=== PATIENT | female | born 1965 | race Caucasian/White ===

== ENCOUNTER 2016-10-02 17:27 | Emergency (ER) | payer OTHER ==
[2016-10-02] MEDS ORDERED: Pepcid 20 MG VIAL IV ONE (17:55)
[2016-10-02] MEDS ORDERED: MORPHINE SULFATE 4 MG INJ ONE (17:55)
[2016-10-02] MEDS ORDERED: BENADRYL 50 MG/ML ONE (17:55)
[2016-10-02] MEDS ORDERED: Sodium Chloride 0.9% 1000 ML 1,000 ML ONE (17:56)
[2016-10-02] MEDS: Pepcid 20 MG VIAL IV ONE (18:03)
[2016-10-02] MEDS: Sodium Chloride 0.9% 1000 ML 1,000 ML IV SCH (18:03)
[2016-10-02] MEDS: BENADRYL 50 MG/ML IV ONE (18:05)
[2016-10-02 18:07] LABS: BASOPHIL % 0.5 % (0.0-0.4); Eosinophil % 1.7 % (0.00-5.0); Granulocytes % 78.5 % (36.0-66.0); Lymphocytes % 13.5 % (24.0-44.0); Mean Cell Volume 75.7 fl (78-100); Mean Corpuscular Hemoglobin 22.9 pg (26-32); Mean Platelet Volume 11.1 fl (6-9.5); Monocytes % 5.8 % (0.0-12.0); Platelet Count 311 K/mm3 (150-450); Red Blood Count 4.32 M/mm3 (4.1-5.4); Red Cell Distribution Width 15.9 % (11.5-14.0); White Blood Count 13.1 K/mm3 (4.0-10.5)
[2016-10-02] MEDS: MORPHINE SULFATE 4 MG INJ IV ONE (18:08)
[2016-10-02 18:21] LABS: ALBUMIN 3.4 g/dL (3.4-5.0); ALKALINE PHOSPHATASE 84 U/L (46-116); BLOOD UREA NITROGEN 14 mg/dL (9-20); CHLORIDE 103 mEq/L (98-107); Glucose 118 MG/DL (70-110); LIPASE 157 U/L (73-393); SGOT/AST 12 U/L (15-37); SGPT/ALT 17 U/L (12-78); SODIUM 139 mEq/L (136-145); Total Protein 7.4 gm/dL (6.4-8.2)
--- NOTE | 2016-10-02 19:10 | ERPHSYRPT ---
- History of Present Illness Time Seen by Provider: 10/02/16 17:34 Historian: patient Patient Subjective Stated Complaint: abd pain since noon Triage Nursing Assessment: pt states she has had increased pressure and abd pain since noon today. has ostomy and states that her stoma is 'pertruding out a little more than normal' has had this ostomy since december 2015 Physician History: CC: abd pain Hx: 51 y/o patient with hx of ostomy. She has had multiple surgeries in the past. She has had abd pain since Noon today. Pain is diffuse, sharp ,and moderately severe. No fever or chills. No chest pain. She has ostomy output but felt like stoma out a little more than usual. She now sees general surgeon in . Timing/Duration: today Quality: aching Abdominal Pain Onset Location: generalized abdomen Severity of Pain-Max: moderate Severity of Pain-Current: moderate Allergies/Adverse Reactions: latex Allergy (Mild, Verified 10/02/16 17:40) Swelling penicillin G Allergy (Mild, Verified 10/02/16 17:40) Swelling hydromorphone [From Dilaudid] Allergy (Verified 10/02/16 17:40) Home Medications: Aspirin 81 mg PO DAILY 07/08/14 [History] Atorvastatin Calcium [Lipitor] 80 mg PO DAILY 07/08/14 [History] Clopidogrel Bisulfate 75 mg [PLAVIX 75 MG Tablet] 75 mg PO DAILY 07/08/14 [History] Lisinopril 5 mg [Zestril 5 MG] 20 mg PO DAILY 07/08/14 [History] Loratadine 10 mg [Claritin 10 mg] 10 mg PO DAILY 07/08/14 [History] Meclizine HCl 25 mg [Antivert 25 mg] 25 mg PO TID 07/08/14 [History] Metoprolol Tartrate 25 mg [Lopressor 25MG Tab] 50 mg PO BID 07/08/14 [ History] Nitroglycerin 0.4 mg Tablet [Nitrostat 0.4 MG Tablet] 0.4 mg SL UD PRN 12/15 [History] Omeprazole 20 MG [Prilosec 20 mg] 20 mg PO DAILY 07/08/14 [History] Hx Tetanus, Diphtheria Vaccination/Date Given: Yes Hx Influenza Vaccination/Date Given: No Hx Pneumococcal Vaccination/Date Given: No Immunizations Up to Date: Yes - Review of Systems Constitutional: No Fever, No Chills Eyes: No Symptoms Ears, Nose, & Throat: No Symptoms Respiratory: No Cough, No Dyspnea Cardiac: No Chest Pain Abdominal/Gastrointestinal: Abdominal Pain, Nausea, No Vomiting Genitourinary Symptoms: No Dysuria Skin: No Rash Neurological: No Headache All Other Systems: Reviewed and Negative - Past Medical History Pertinent Past Medical History: Yes Neurological History: No Pertinent History ENT History: Other Cardiac History: Coronary Artery Disease, Hypertension, Myocardial Infarction ( [place]) Respiratory History: Sleep Apnea Endocrine Medical History: No Pertinent History Musculoskeletal History: No Pertinent History GI Medical History: Diverticulitis, Diverticulosis History: No Pertinent History Psycho-Social History: No Pertinent History Female Reproductive Disorders: No Pertinent History Other Medical History: 11/15 DIVERTICULITIS W/ BOWEL RUPTURE AND OSTOMY. 12/16 PT. HAD FISTUAL AND ABSCESS AND THEN C-DIFF. INFECTION AFTER OSTOMY REVERSAL ATTEMPT AND THEN HAD TO HAVE OSTOMY REPLACED. [place] 3 YEARS AGO W/ STENT - Past Surgical History Past Surgical History: Yes Cardiac: Cardiac Stent Gastrointestinal: Cholecystectomy Musculoskeletal: Orthopedic Surgery Female Surgical History: Hysterectomy Other Surgical History: OSTY - Social History Smoking Status: Current every day smoker How long have you smoked: YRS Exposure to second hand smoke: Yes Drug Use: none Patient Lives Alone: No - Nursing Vital Signs Nursing Vital Signs: Initial Vital Signs Temperature 98.5 F Temperature Source Oral Pulse Rate 95 Respiratory Rate 20 Blood Pressure [Right Arm] 138/73 Pain Intensity 7 - Physical Exam General Appearance: alert Eye Exam: PERRL/EOMI Ears, Nose, Throat Exam: normal ENT inspection, moist mucous membranes Neck Exam: normal inspection, non-tender, supple Respiratory Exam: normal breath sounds Cardiovascular Exam: regular rate/rhythm Gastrointestinal/Abdomen Exam: soft, tenderness (diffuse ), other (ostomy viable , positive output) Extremity Exam: normal inspection, normal range of motion Neurologic Exam: alert, oriented x 3, cooperative, sensation nml, No motor deficits Skin Exam: warm, dry, No rash SpO2 Interpretation: normal SpO2: 98 Oxygen Delivery: Room Air - Course Nursing assessment & vital signs reviewed: Yes EKG Interpreted by Me: RATE (79), Sinus Rhythm, NORMAL AXIS, 1st degree AV Block , NORMAL QRS, NORMAL ST-T Ordered Tests: Active Orders 24 hr Category Date Time Status Cath for Specimen-Straight STAT Care 10/02/16 17:41 Active EKG-ER Only STAT Care 10/02/16 17:41 Active IV Insertion STAT Care 10/02/16 17:41 Active NPO (ED) STAT Care 10/02/16 17:41 Active ABDOMEN AND PELVIS W CONTRAST [CT] Stat Exams 10/02/16 17:41 Taken CBC W DIFF Stat Lab 10/02/16 17:58 Completed CMP Stat Lab 10/02/16 17:58 Completed LIPASE Stat Lab 10/02/16 17:58 Completed Lactic Acid Stat Lab 10/02/16 17:41 Completed UA W/ MICROSCOPIC Stat Lab 10/02/16 19:21 Completed Medication Summary Generic Name Dose Route Start Last Admin Trade Name Freq PRN Reason Stop Dose Admin Sodium Chloride 1,000 mls @ 100 mls/hr 10/02/16 17:45 10/02/16 18:03 Sodium Chloride 0.9% 1000 Ml IV 11/01/16 17:44 100 mls/hr .Q10H ARELIS Administration Discontinued Medications Generic Name Dose Route Start Last Admin Trade Name Freq PRN Reason Stop Dose Admin Diphenhydramine HCl 25 mg 10/02/16 17:41 10/02/16 18:05 Benadryl 50 Mg/Ml IV 10/02/16 17:42 25 mg STAT ONE Administration Diphenhydramine HCl Confirm 10/02/16 17:55 Benadryl 50 Mg/Ml Administered 10/02/16 17:56 Dose 50 mg .ROUTE .STK-MED ONE Famotidine 20 mg 10/02/16 17:41 10/02/16 18:03 Pepcid 20 Mg Vial IV 10/02/16 17:42 20 mg STAT ONE Administration Famotidine Confirm 10/02/16 17:55 Pepcid 20 Mg Vial Administered 10/02/16 17:56 Dose 20 mg IV .STK-MED ONE Morphine Sulfate 4 mg 10/02/16 17:41 10/02/16 18:08 Morphine Sulfate 4 Mg Inj IV 10/02/16 17:42 4 mg STAT ONE Administration Morphine Sulfate Confirm 10/02/16 17:55 Morphine Sulfate 4 Mg Inj Administered 10/02/16 17:56 Dose 4 mg .ROUTE .STK-MED ONE Morphine Sulfate 2 mg 10/02/16 20:08 10/02/16 20:10 Morphine Sulfate 2 Mg Inj IV 10/02/16 20:09 2 mg STAT ONE Administration Morphine Sulfate Confirm 10/02/16 20:10 Morphine Sulfate 2 Mg Inj Administered 10/02/16 20:11 Dose 2 mg .ROUTE .STK-MED ONE Lab/Rad Data: Laboratory Result Diagrams 10/02/16 17:58 10/02/16 17:58 Laboratory Results 10/02/16 10/02/16 10/02/16 Range/Units 19:21 17:58 17:58 WBC 13.1 H (4.0-10.5) K/mm3 RBC 4.32 (4.1-5.4) M/mm3 Hgb 9.9 L (12.0-16.0) gm/dl Hct 32.7 L (35-47) % MCV 75.7 L (78-100) fl MCH 22.9 L (26-32) pg MCHC 30.3 L (32-36) g/dl RDW 15.9 H (11.5-14.0) % Plt Count 311 (150-450) K/mm3 MPV 11.1 H (6-9.5) fl Gran % 78.5 H (36.0-66.0) % Lymphocytes % 13.5 L (24.0-44.0) % Monocytes % 5.8 (0.0-12.0) % Eosinophils % 1.7 (0.00-5.0) % Basophils % 0.5 (0.0-0.4) % Basophils # 0.07 (0-0.4) Sodium 139 (136-145) mEq/L Potassium 4.0 (3.5-5.1) mEq/L Chloride 103 (98-107) mEq/L Carbon Dioxide 24.0 (21-32) mEq/L Anion Gap 16.0 H (5-15) MEQ/L BUN 14 (9-20) mg/dL Creatinine 0.86 (0.55-1.30) mg/dl Estimated GFR > 60 ML/MIN Glucose 118 H (70-110) MG/DL Lactic Acid (0.4-2.0) Calcium 9.1 (8.5-10.1) mg/dL Total Bilirubin 0.30 (0.2-1.0) mg/dL AST 12 L (15-37) U/L ALT 17 (12-78) U/L Alkaline Phosphatase 84 (46-116) U/L Serum Total Protein 7.4 (6.4-8.2) gm/dL Albumin 3.4 (3.4-5.0) g/dL Lipase 157 (73-393) U/L Ur Collection Type CATH Urine Color YELLOW (YELLOW) Urine Appearance CLEAR (CLEAR) Urine pH 7.0 (5-6) Ur Specific [place] 1.025 (1.005-1.025) Urine Protein NEGATIVE (Negative) Urine Glucose (UA) NEGATIVE (NEGATIVE) mg/dL Urine Ketones NEGATIVE (NEGATIVE) Urine Nitrite NEGATIVE (NEGATIVE) Urine Bilirubin NEGATIVE (NEGATIVE) Urine Urobilinogen 0.2 (0-1) mg/dL Urine WBC (Auto) NEGATIVE (NEGATIVE) Urine RBC (Auto) TRACE-LYSED (0-5) Earle/ul Urine Microscopic RBC 2-5 (0-2) /HPF Urine Microscopic WBC 0-2 (0-5) /HPF Ur Epithelial Cells MODERATE (FEW) /HPF Urine Bacteria RARE (NEGATIVE) /HPF Urine Mucus MODERATE (NEGATIVE) /HPF Specimen Received 10/02/16193910/02/16 Range/Units 17:41 WBC (4.0-10.5) K/mm3 RBC (4.1-5.4) M/mm3 Hgb (12.0-16.0) gm/dl Hct (35-47) % MCV (78-100) fl MCH (26-32) pg MCHC (32-36) g/dl RDW (11.5-14.0) % Plt Count (150-450) K/mm3 MPV (6-9.5) fl Gran % (36.0-66.0) % Lymphocytes % (24.0-44.0) % Monocytes % (0.0-12.0) % Eosinophils % (0.00-5.0) % Basophils % (0.0-0.4) % Basophils # (0-0.4) Sodium (136-145) mEq/L Potassium (3.5-5.1) mEq/L Chloride (98-107) mEq/L Carbon Dioxide (21-32) mEq/L Anion Gap (5-15) MEQ/L BUN (9-20) mg/dL Creatinine (0.55-1.30) mg/dl Estimated GFR ML/MIN Glucose (70-110) MG/DL Lactic Acid 1.4 (0.4-2.0) Calcium (8.5-10.1) mg/dL Total Bilirubin (0.2-1.0) mg/dL AST (15-37) U/L ALT (12-78) U/L Alkaline Phosphatase (46-116) U/L Serum Total Protein (6.4-8.2) gm/dL Albumin (3.4-5.0) g/dL Lipase (73-393) U/L Ur Collection Type Urine Color (YELLOW) Urine Appearance (CLEAR) Urine pH (5-6) Ur Specific [place] (1.005-1.025) Urine Protein (Negative) Urine Glucose (UA) (NEGATIVE) mg/dL Urine Ketones (NEGATIVE) Urine Nitrite (NEGATIVE) Urine Bilirubin (NEGATIVE) Urine Urobilinogen (0-1) mg/dL Urine WBC (Auto) (NEGATIVE) Urine RBC (Auto) (0-5) Earle/ul Urine Microscopic RBC (0-2) /HPF Urine Microscopic WBC (0-5) /HPF Ur Epithelial Cells (FEW) /HPF Urine Bacteria (NEGATIVE) /HPF Urine Mucus (NEGATIVE) /HPF Specimen Received - Progress Progress Note: 10/02/16 19:[address] abd/pelvis. 10/02/16 19:55 CT abd/pelvis: dale 7:25 PM 10/02/2016: No comps. Moderate sized L midabdomen ventral hernia defect w/ small bowel loop herniating. The more proximal small bowel is distended up to 4cm...R/O partial obstruction. R abdomen diverting colostomy intact w/o complications. Remaining abd/pel negative. Pt and family informed of CT results and anemia. Called Dr Hagan for [facility] who advised send patient to where she has seen Dr Lamonte Gutierrez for her ostomy and general surgery issues recently. Called [facility] to arrange transfer. Pt agreeable. 10/02/16 20:[address] Lamonte Dobson at . He accepts transfer to [facility]. Counseled pt/family regarding: lab results, diagnosis, need for follow-up, rad results - Departure Time of Disposition: 20:22 Departure Disposition: Transfer ([facility]) Clinical Impression: Acute abdominal pain, Incarcerated ventral hernia, Partial small bowel obstruction Condition: Fair Critical Care Time: No Referrals: BEBA TAVERA MD [Primary Care Provider] -
[2016-10-02 19:41] LABS: ADD URINE CULTURE? NO (NO); Bacteria RARE /HPF (NEGATIVE); COMPLETE URINE MICROSCOPIC? YES; Collection Type CATH; Epithelial Cells MODERATE /HPF (FEW); Mucus MODERATE /HPF (NEGATIVE); WBC 0-2 /HPF (0-5)
[2016-10-02] MEDS: MORPHINE SULFATE 2 MG INJ IV ONE (20:10)
[2016-10-02] MEDS ORDERED: MORPHINE SULFATE 2 MG INJ ONE (20:10)
[2016-10-02] MEDS ORDERED: Zofran 4 MG/2 ML VIAL ONE (20:33)
[2016-10-02] MEDS: Zofran 4 MG/2 ML VIAL IV ONE (20:34)
[2016-10-02 20:47] VITALS: PULSE 98
--- NOTE | 2016-10-03 08:12 | XRAY ---
Indication: Abdominal pain. Multiple contiguous axial images obtained through the abdomen and pelvis using 80 cc Isovue-370 contrast only. Comparison: None Minimal bibasilar atelectasis/scarring and peripheral right base calcified granuloma. Heart is not enlarged. Stomach is mildly fluid distended. There is a [place] 3.5 cm left mid abdomen ventral hernia defect with loop of small bowel herniating. The more proximal small bowel loop is distended up to 4 cm in diameter concerning for partial obstruction. There has been right mid abdomen diverting colostomy, cholecystectomy, and hysterectomy. Normal appendix. No free fluid/air. Remaining liver, pancreas, spleen, adrenal glands, kidneys, ureters, and bladder appear normal in CT appearance and attenuation. Moderate aortoiliac calcifications. No AAA or pathologic which appear new lymphadenopathy. Osseous structures intact with mild degenerative changes throughout the spine. Impression: 1. Left mid abdomen ventral hernia with herniated bowel loop producing partial obstruction. 2. Right abdomen diverting colostomy without complications. CTDI 23.68
[2016-10-03 13:29] VITALS: BP 192/92; O2SAT 96
== END 2016-10-02 23:08 | disposition short-term general hospital (02) ==
LOC: ED 17:27
DX: R10.9 Unspecified abdominal pain (principal); K43.9 Ventral hernia without obstruction or gangrene; K56.60 Unspecified intestinal obstruction
CPT/HCPCS: 36000; 36415; 74177; 80053; 81000; 83605; 83690; 85025; 93005; 96360; 96361; 96374; 96375; 96376; 99285; J1200; J2270; J2405; P9612

== ENCOUNTER 2016-12-25 23:33 | Observation (INO) | payer OTHER ==
[2016-12-25] MEDS ORDERED: MORPHINE SULFATE 4 MG INJ IV ONE (23:52)
[2016-12-25] MEDS ORDERED: Zofran 4 MG/2 ML VIAL IV ONE (23:52)
[2016-12-25] MEDS ORDERED: Sodium Chloride 0.9% 1000 ML 1,000 ML IV STA (23:52)
[2016-12-25] MEDS ORDERED: PROTONIX 40 MG IV IV ONE (23:52)
[2016-12-26] MEDS ORDERED: PROTONIX 40 MG IV IV ONE (00:02)
[2016-12-26] MEDS ORDERED: Zofran 4 MG/2 ML VIAL ONE (00:02)
[2016-12-26] MEDS ORDERED: Sodium Chloride 0.9% 1000 ML 1,000 ML ONE (00:03)
[2016-12-26] MEDS ORDERED: MORPHINE SULFATE 4 MG INJ ONE (00:03)
[2016-12-26 00:26] LABS: BASOPHIL % 0.3 % (0.0-0.4); Eosinophil % 6.8 % (0.00-5.0); Granulocytes % 72.7 % (36.0-66.0); Lymphocytes % 15.5 % (24.0-44.0); Mean Cell Volume 73.1 fl (78-100); Mean Corpuscular Hemoglobin 21.1 pg (26-32); Mean Platelet Volume 9.9 fl (6-9.5); Monocytes % 4.7 % (0.0-12.0); Platelet Count 525 K/mm3 (150-450); Red Blood Count 4.02 M/mm3 (4.1-5.4); Red Cell Distribution Width 17.5 % (11.5-14.0)
[2016-12-26 00:45] LABS: ALBUMIN 2.8 g/dL (3.4-5.0); ALKALINE PHOSPHATASE 71 U/L (46-116); ANION GAP 12.8 MEQ/L (5-15); BLOOD UREA NITROGEN 13 mg/dL (9-20); CHLORIDE 104 mEq/L (98-107); Carbon Dioxide 25.8 mEq/L (21-32); Glucose 124 MG/DL (70-110); LIPASE 107 U/L (73-393); Potassium 3.7 mEq/L (3.5-5.1); SGOT/AST 17 U/L (15-37); SGPT/ALT 21 U/L (12-78); SODIUM 139 mEq/L (136-145); Total Protein 6.9 gm/dL (6.4-8.2)
[2016-12-26 00:54] LABS: Bacteria MODERATE /HPF (NEGATIVE); Bilirubin NEGATIVE (NEGATIVE); Blood 50 Ery/ul (0-5); COMPLETE URINE MICROSCOPIC? YES; Collection Type CLEAN CATCH; Epithelial Cells MODERATE /HPF (FEW); Glucose NEGATIVE (NEGATIVE); Leukocyte Esterase TRACE (NEGATIVE); WBC 0-2 /HPF (0-5)
[2016-12-26 00:55] LABS: ADD URINE CULTURE? YES (NO)
[2016-12-26] MEDS ORDERED: LEVOFLOXACIN 750MG/150ML D5W 750 MG/150 ML BAG IV STA (01:58)
[2016-12-26] MEDS ORDERED: FLAGYL 500 MG IVPB 500 MG/100 ML BAG IV STA (01:58)
[2016-12-26] MEDS ORDERED: LEVOFLOXACIN 750MG/150ML D5W 750 MG/150 ML BAG IV ONE (02:08)
[2016-12-26] MEDS ORDERED: FLAGYL 500 MG IVPB 500 MG/100 ML BAG IV ONE (02:08)
--- NOTE | 2016-12-26 02:10 | ERPHSYRPT ---
- History of Present Illness Time Seen by Provider: 12/25/16 23:37 Historian: patient, family Exam Limitations: no limitations Patient Subjective Stated Complaint: pt states she has a hernia on her lt abd from previous colostomy site. states she had multiple revisions and had reversal on 12/14/16 at . Triage Nursing Assessment: pt alert and oriented, asnwers questions approp. pt transfer from wheelchair to stretcher with minimal assist. respirations nonlabored with lungs cta. abd soft, tender to touch with large hernia to lt abd , drsg to rt abd pt states from colostomy reversal. bowel sounds present. Timing/Duration: day(s) (3) Activities at Onset: none Quality: sharpness Abdominal Pain Onset Location: LLQ, generalized abdomen Pain Radiation: RUQ Severity of Pain-Max: severe Severity of Pain-Current: severe Modifying Factors: Improves With: vomiting Associated Symptoms: diarrhea, nausea, vomiting Previous symptoms: same symptoms as today, recently seen, recent hospitalization , recently treated Allergies/Adverse Reactions: latex Allergy (Mild, Verified 12/25/16 23:53) Swelling penicillin G Allergy (Mild, Verified 12/25/16 23:53) Swelling hydromorphone [From Dilaudid] Allergy (Verified 12/25/16 23:53) Home Medications: Aspirin 81 mg PO DAILY 07/08/14 [History] Atorvastatin Calcium [Lipitor] 80 mg PO DAILY 07/08/14 [History] Clopidogrel Bisulfate 75 mg [PLAVIX 75 MG Tablet] 75 mg PO DAILY 07/08/14 [History] Lisinopril 5 mg [Zestril 5 MG] 20 mg PO DAILY 07/08/14 [History] Loratadine 10 mg [Claritin 10 mg] 10 mg PO DAILY 07/08/14 [History] Meclizine HCl 25 mg [Antivert 25 mg] 25 mg PO TID 07/08/14 [History] Metoprolol Tartrate 25 mg [Lopressor 25MG Tab] 75 mg PO BID 07/08/14 [ History] Nitroglycerin 0.4 mg Tablet [Nitrostat 0.4 MG Tablet] 0.4 mg SL UD PRN 12/15 [History] Omeprazole 20 MG [Prilosec 20 mg] 40 mg PO DAILY 07/08/14 [History] Amlodipine Besylate 5 mg [Norvasc 5 mg] 5 mg PO DAILY 12/25/16 [History] Hydrocodone Bit/Acetaminophen [[place] 5-325 Tablet] 2 each PO Q4HPRN PRN [History] Magnesium Oxide 400 mg [Mag-Ox 400] 400 mg PO DAILY 12/25/16 [History] Ondansetron HCl [Zofran] 4 mg PO Q4HPRN PRN 12/25/16 [History] Polyethylene Glycol 3350 17 gm [Miralax Powder 17GM PACKET] 17 gm PO DAILY [History] Hx Tetanus, Diphtheria Vaccination/Date Given: Yes Hx Influenza Vaccination/Date Given: No Hx Pneumococcal Vaccination/Date Given: No Immunizations Up to Date: Yes - Review of Systems Constitutional: No Symptoms Eyes: No Symptoms Ears, Nose, & Throat: No Symptoms Respiratory: No Symptoms Cardiac: No Symptoms Abdominal/Gastrointestinal: Abdominal Pain, Nausea, Vomiting, Diarrhea Genitourinary Symptoms: No Symptoms Musculoskeletal: No Symptoms Skin: No Symptoms Neurological: No Symptoms Psychological: No Symptoms Endocrine: No Symptoms Hematologic/Lymphatic: No Symptoms Immunological/Allergic: No Symptoms - Past Medical History Pertinent Past Medical History: Yes Neurological History: No Pertinent History ENT History: Other Cardiac History: Coronary Artery Disease, Hypertension, Myocardial Infarction ( [place]) Respiratory History: Sleep Apnea Endocrine Medical History: No Pertinent History Musculoskeletal History: No Pertinent History GI Medical History: Diverticulitis, Diverticulosis History: No Pertinent History Psycho-Social History: No Pertinent History Female Reproductive Disorders: No Pertinent History Other Medical History: 11/15 DIVERTICULITIS W/ BOWEL RUPTURE AND OSTOMY. 12/16 PT. HAD FISTUAL AND ABSCESS AND THEN C-DIFF. INFECTION AFTER OSTOMY REVERSAL ATTEMPT AND THEN HAD TO HAVE OSTOMY REPLACED. [place] 3 YEARS AGO W/ STENT - Past Surgical History Past Surgical History: Yes Cardiac: Cardiac Stent Gastrointestinal: Cholecystectomy, Colon Resection, Other Musculoskeletal: Orthopedic Surgery Female Surgical History: Hysterectomy Other Surgical History: ostomy with reversal and 2nd ostomy. [facility] at [facility] - Social History Smoking Status: Current every day smoker How long have you smoked: YRS Exposure to second hand smoke: Yes Drug Use: none Patient Lives Alone: No - Female History Hx Last Menstrual Period: post - Nursing Vital Signs Nursing Vital Signs: Initial Vital Signs Temperature 98.8 F 12/25/16 23:37 Pulse Rate 91 H 12/25/16 23:37 Respiratory Rate 20 12/25/16 23:37 Blood Pressure 154/72 12/25/16 23:37 O2 Sat by Pulse Oximetry 97 12/25/16 23:37 Pain Scale Pain Intensity 10 - Physical Exam General Appearance: severe distress Eye Exam: PERRL/EOMI, eyes nml inspection Ears, Nose, Throat Exam: normal ENT inspection, pharynx normal, moist mucous membranes Neck Exam: normal inspection, non-tender, supple, full range of motion Respiratory Exam: normal breath sounds, lungs clear, airway intact Cardiovascular Exam: regular rate/rhythm, normal heart sounds, normal peripheral pulses Gastrointestinal/Abdomen Exam: soft, tenderness (LLQ), distention, guarding, rebound, No normal bowel sounds Extremity Exam: normal inspection, normal range of motion, pelvis stable Neurologic Exam: alert, oriented x 3, cooperative, normal mood/affect Skin Exam: normal color, warm, dry SpO2 Interpretation: normal SpO2: 97 Oxygen Delivery: Room Air - Course Nursing assessment & vital signs reviewed: Yes - CT Exams Abdomen/Pelvis CT Interpretation: Tele-radiologist Report, Other (Hernia sac left abdominal with SBO transition point. Mild fat stranding. Right abdominal anastamosis.) Ordered Tests: Active Orders 24 hr Category Date Time Status Clean Catch Urine Specimen STAT Care 12/25/16 23:52 Active IV Insertion STAT Care 12/25/16 23:52 Active NPO (ED) STAT Care 12/25/16 23:52 Active ABDOMEN AND PELVIS W CONTRAST [CT] Stat Exams 12/25/16 23:53 Taken CHEST 1 VIEW (PORTABLE) Stat Exams 12/25/16 23:53 Taken Medication Summary Generic Name Dose Route Start Last Admin Trade Name Freq PRN Reason Stop Dose Admin Metronidazole 500 mg in 100 mls @ 200 mls/hr 12/26/16 01:58 Flagyl 500 Mg Ivpb IV 12/26/16 02:27 STAT STA Levofloxacin/Dextrose 750 mg in 150 mls @ 100 mls/hr 12/26/16 01:58 Levofloxacin 750mg/150ml D5w IV 12/26/16 03:27 STAT STA Discontinued Medications Generic Name Dose Route Start Last Admin Trade Name Esther PRN Reason Stop Dose Admin Sodium Chloride 1,000 mls @ 999 mls/hr 12/25/16 23:52 12/26/16 00:27 Sodium Chloride 0.9% 1000 Ml IV 12/26/16 00:52 999 mls/hr .Q1H1M STA Administration Sodium Chloride Confirm 12/26/16 00:03 Sodium Chloride 0.9% 1000 Ml Administered 12/26/16 00:04 Dose 1,000 mls @ ud .ROUTE .STK-MED ONE Morphine Sulfate 4 mg 12/25/16 23:52 12/26/16 00:28 Morphine Sulfate 4 Mg Inj IV 12/25/16 23:53 4 mg STAT ONE Administration Morphine Sulfate Confirm 12/26/16 00:03 Morphine Sulfate 4 Mg Inj Administered 12/26/16 00:04 Dose 4 mg .ROUTE .STK-MED ONE Ondansetron HCl 4 mg 12/25/16 23:52 12/26/16 00:28 Zofran 4 Mg/2 Ml Vial IV 12/25/16 23:53 4 mg STAT ONE Administration Ondansetron HCl Confirm 12/26/16 00:02 Zofran 4 Mg/2 Ml Vial Administered 12/26/16 00:03 Dose 4 mg .ROUTE .STK-MED ONE Pantoprazole Sodium 40 mg 12/25/16 23:52 12/26/16 00:27 Protonix 40 Mg Iv IV 12/25/16 23:53 40 mg STAT ONE Administration Pantoprazole Sodium Confirm 12/26/16 00:02 Protonix 40 Mg Iv Administered 12/26/16 00:03 Dose 40 mg IV .STK-MED ONE Lab/Rad Data: Laboratory Result Diagrams 12/25/16 00:01 12/25/16 00:01 Laboratory Results 12/26/16 12/25/16 12/25/16 Range/Units 00:12 00:35 00:01 WBC (4.0-10.5) K/mm3 RBC (4.1-5.4) M/mm3 Hgb (12.0-16.0) gm/dl Hct (35-47) % MCV (78-100) fl MCH (26-32) pg MCHC (32-36) g/dl RDW (11.5-14.0) % Plt Count (150-450) K/mm3 MPV (6-9.5) fl Gran % (36.0-66.0) % Lymphocytes % (24.0-44.0) % Monocytes % (0.0-12.0) % Eosinophils % (0.00-5.0) % Basophils % (0.0-0.4) % Basophils # (0-0.4) Sodium 139 (136-145) mEq/L Potassium 3.7 (3.5-5.1) mEq/L Chloride 104 (98-107) mEq/L Carbon Dioxide 25.8 (21-32) mEq/L Anion Gap 12.8 (5-15) MEQ/L BUN 13 (9-20) mg/dL Creatinine 0.83 (0.55-1.30) mg/dl Estimated GFR > 60 ML/MIN Glucose 124 H (70-110) MG/DL Lactic Acid 1.1 (0.4-2.0) Calcium 8.8 (8.5-10.1) mg/dL Total Bilirubin 0.30 (0.2-1.0) mg/dL AST 17 (15-37) U/L ALT 21 (12-78) U/L Alkaline Phosphatase 71 (46-116) U/L Serum Total Protein 6.9 (6.4-8.2) gm/dL Albumin 2.8 L (3.4-5.0) g/dL Lipase 107 (73-393) U/L Ur Collection Type CLEAN CATCH Urine Color YELLOW (YELLOW) Urine Appearance CLEAR (CLEAR) Urine pH 5.0 (5-6) Ur Specific [place] 1.015 (1.005-1.025) Urine Protein NEGATIVE (Negative) Urine Ketones NEGATIVE (NEGATIVE) Urine Blood 50 (0-5) Earle/ul Urine Nitrite NEGATIVE (NEGATIVE) Urine Bilirubin NEGATIVE (NEGATIVE) Urine Urobilinogen NORMAL (0-1) mg/dL Ur Leukocyte Esterase TRACE (NEGATIVE) Urine Microscopic RBC 2-5 (0-2) /HPF Urine Microscopic WBC 0-2 (0-5) /HPF Ur Epithelial Cells MODERATE (FEW) /HPF Urine Bacteria MODERATE (NEGATIVE) /HPF Urine Glucose NEGATIVE (NEGATIVE) mg/dL Slides for Path Review Specimen Received 12/26/16 0030 12/25/16 Range/Units 00:01 WBC 14.0 H (4.0-10.5) K/mm3 RBC 4.02 L (4.1-5.4) M/mm3 Hgb 8.5 L (12.0-16.0) gm/dl Hct 29.4 L (35-47) % MCV 73.1 L (78-100) fl MCH 21.1 L (26-32) pg MCHC 28.9 L (32-36) g/dl RDW 17.5 H (11.5-14.0) % Plt Count 525 H (150-450) K/mm3 MPV 9.9 H (6-9.5) fl Gran % 72.7 H (36.0-66.0) % Lymphocytes % 15.5 L (24.0-44.0) % Monocytes % 4.7 (0.0-12.0) % Eosinophils % 6.8 H (0.00-5.0) % Basophils % 0.3 (0.0-0.4) % Basophils # 0.04 (0-0.4) Sodium (136-145) mEq/L Potassium (3.5-5.1) mEq/L Chloride (98-107) mEq/L Carbon Dioxide (21-32) mEq/L Anion Gap (5-15) MEQ/L BUN (9-20) mg/dL Creatinine (0.55-1.30) mg/dl Estimated GFR ML/MIN Glucose (70-110) MG/DL Lactic Acid (0.4-2.0) Calcium (8.5-10.1) mg/dL Total Bilirubin (0.2-1.0) mg/dL AST (15-37) U/L ALT (12-78) U/L Alkaline Phosphatase (46-116) U/L Serum Total Protein (6.4-8.2) gm/dL Albumin (3.4-5.0) g/dL Lipase (73-393) U/L Ur Collection Type Urine Color (YELLOW) Urine Appearance (CLEAR) Urine pH (5-6) Ur Specific [place] (1.005-1.025) Urine Protein (Negative) Urine Ketones (NEGATIVE) Urine Blood (0-5) Earle/ul Urine Nitrite (NEGATIVE) Urine Bilirubin (NEGATIVE) Urine Urobilinogen (0-1) mg/dL Ur Leukocyte Esterase (NEGATIVE) Urine Microscopic RBC (0-2) /HPF Urine Microscopic WBC (0-5) /HPF Ur Epithelial Cells (FEW) /HPF Urine Bacteria (NEGATIVE) /HPF Urine Glucose (NEGATIVE) mg/dL Slides for Path Review YES Specimen Received - Progress Progress: unchanged Discussed with Dr.: Other (Dr. Lamonte Dobson's surgery service at .) Counseled pt/family regarding: lab results, diagnosis, need for follow-up, rad results - Departure Time of Disposition: 02:00 Departure Disposition: Transfer Clinical Impression: SBO (small bowel obstruction), Acute abdominal pain UTI (urinary tract infection) Qualifiers: Urinary tract infection type: site unspecified Hematuria presence: with hematuria Qualified Code(s): N39.0 - Urinary tract infection, site not specified ; R31.9 - Hematuria, unspecified Condition: Serious Critical Care Time: No Referrals: BEBA TAVERA MD [Primary Care Provider] -
[2016-12-26] MEDS ORDERED: MORPHINE SULFATE 4 MG INJ IV PRN (02:38)
[2016-12-26] MEDS: Sodium Chloride 0.9% 1000 ML 1,000 ML IV SCH ×2 (03:17→13:45)
--- NOTE | 2016-12-26 09:12 | XRAY ---
Indication: Left lower abdomen pain. Status post colostomy reversal. Multiple contiguous axial images obtained through the abdomen and pelvis using 80 cc Isovue-370 contrast only. Comparison: October 02, 2016. Again minimal bibasilar atelectasis/scarring and peripheral right base calcified granuloma. Heart is not enlarged. Noncontrasted stomach unremarkable. Noncontrasted small bowel loops again fluid distended to the level of the previous left mid abdomen ventral hernia with again herniated small bowel loop and subsequent obstruction. Herniated bowel loops today appear more edematous. The more proximal small bowel loop is distended up to 4.6 cm. New tiny right pelvic free fluid presumed reactive. No walled off fluid collection or free air. There has been colostomy reversal. Again cholecystectomy and hysterectomy. Remaining liver, pancreas, spleen, adrenal glands, kidneys, ureters, and bladder appear normal in CT appearance and attenuation. Moderate aortoiliac calcifications. No AAA or pathologic lymphadenopathy. Osseous structures intact with mild degenerative changes throughout the spine. Impression: Again left mid abdomen ventral hernia with herniated bowel loop and subsequent obstruction. Tiny right pelvic free fluid presumed reactive. Comment: Preliminary interpretation was made by [facility]. No critical discrepancy. CTDI 28.13
--- NOTE | 2016-12-26 09:14 | XRAY ---
Indication: Chest pain. Comparison: None Portable chest clear. Heart is borderline enlarged. Vascularity normal. Bony thorax intact with spinal degenerative changes. Impression: Borderline cardiomegaly. Negative for acute pneumonic process or CHF.
[2016-12-26] MEDS ORDERED: Zofran 4 MG/2 ML VIAL IV PRN (12:17)
[2016-12-26 19:49] VITALS: BP 131/61; PULSE 87; O2SAT 92
--- NOTE | 2016-12-28 10:07 | SSS ---
DISCHARGE DIAGNOSIS: 1. SMALL BOWEL OBSTRUCTION. HISTORY OF PRESENT ILLNESS: The patient is a 51 y/o WF with a long history of bowel problems. She has had multiple bowel surgeries performed. She has a surgeon at [facility]. She presented herself to the Emergency Room with complaints of similar symptoms as previous to her small bowel obstruction. This was confirmed on CT scan that the patient did indeed have a small bowel obstruction. The patient wished to be seen at [facility] by her regular surgeon. However, a bed could not be obtained initially. The patient was in the Emergency Room for approximately 9 hours while they were waiting on a bed. They were told a bed would not be available until later in the day. She was therefore placed in observation in the facility. The patient did receive a bed and was transferred to the [facility] before I had a chance to evaluate her on examination. The patient again with the diagnosis of small bowel obstruction was transferred to [facility] prior to the time that I could see her.
== END 2016-12-26 20:45 ==
LOC: ED 23:33 → MED SURG 12-26 08:50
PROVIDERS: ADMIT Family Medicine; ATTEND Family Medicine
DX: K56.60 Unspecified intestinal obstruction (principal); N39.0 Urinary tract infection, site not specified; I25.10 Atherosclerotic heart disease of native coronary artery without angina pectoris; I10 Essential (primary) hypertension; Z79.899 Other long term (current) drug therapy; I25.2 Old myocardial infarction; G47.30 Sleep apnea, unspecified; Z72.0 Tobacco use
CPT/HCPCS: 36000; 36415; 71010; 74177; 80053; 81000; 83605; 83690; 85025; 87040; 87077; 87086; 87186; 96360; 96361; 96365; 96366; 96374; 96375; 99285; G0378; J1956; J2270; J2405

== ENCOUNTER 2019-07-10 17:26 | Emergency (ER) | payer OTHER ==
[2019-07-10] MEDS ORDERED: BABY ASPIRIN 81 MG CHEW PO ONE (17:42)
[2019-07-10] MEDS ORDERED: Sodium Chloride 0.9% 1000 ML 1,000 ML IV SCH (17:45)
[2019-07-10] MEDS ORDERED: Sodium Chloride 0.9% 1000 ML 1,000 ML ONE (17:50)
[2019-07-10] MEDS ORDERED: BABY ASPIRIN 81 MG CHEW ONE (17:50)
[2019-07-10 17:51] LABS: Absolute Neutrophil Ct (ANC) 5.68 (1.4-6.9); BASOPHIL % 0.8 % (0.0-0.4); Basophil (Absolute #) 0.07 (0-0.4); Eosinophil % 2.5 % (0.00-5.0); Eosinophil (Absolute #) 0.23 (0-0.5); Hematocrit 38.1 % (35-47); Hemoglobin 11.8 gm/dl (12.0-16.0); INR 1.06 (0.8-3.0); Lymphocyte (Absolute #) 2.46 (1.0-4.6); Lymphocytes % 27.2 % (24.0-44.0); Mean Cell Volume 79.2 fl (78-100); Mean Corpuscular Hemoglobin 24.5 pg (26-32); Monocyte (Absolute #) 0.61 (0.0-1.3); Monocytes % 6.7 % (0.0-12.0); Neutrophil % 62.8 % (36.0-66.0); Platelet Count 242 K/mm3 (150-450); Red Blood Count 4.81 M/mm3 (4.1-5.4); White Blood Count 9.1 K/mm3 (4.0-10.5)
[2019-07-10 18:05] LABS: ALBUMIN 4.1 g/dL (3.5-5.0); ALKALINE PHOSPHATASE 70 U/L (38-126); ANION GAP 10.3 MEQ/L (5-15); BLOOD UREA NITROGEN 13 mg/dL (7-17); CHLORIDE 107 mmol/L (98-107); Calcium 9.6 mg/dL (8.4-10.2); Carbon Dioxide 27 mmol/L (22-30); Glucose 104 mg/dL (74-106); NT PRO BNP 339 pg/mL (0-900); Potassium 3.7 mmol/L (3.5-5.1); SGOT/AST 22 U/L (14-36); SGPT/ALT 15 U/L (0-35); SODIUM 140 mmol/L (137-145); Total Protein 7.5 g/dL (6.3-8.2)
--- NOTE | 2019-07-10 19:11 | ERPHSYRPT ---
- History of Present Illness Time Seen by Provider: 07/10/19 17:45 Historian: patient Exam Limitations: no limitations Patient Subjective Stated Complaint: Chest pain Triage Nursing Assessment: Patient ambulated back to ED and transferred self to bed. Patient A+O X 3. Patient's skin pink, warm and dry. Patient complains of chest pain that radiates down to left arm causing a numbness 3/10 that started at 1630. Patient's lungs clear a/p maged. Heart tones audible. Physician History: Is a 54-year-old female who developed chest pain noted increased blood pressure lightheadedness and some nausea but no shortness of breath. She also noted some left arm pain she does have a history of a stent 5 or 6 years ago. Risk factors include family history hypertension and smoking. Timing/Duration: today Activities at Onset: none Quality: pressure Location: substernal Chest Pain Radiation: arm (left) Severity of Pain-Max: moderate Severity of Pain-Current: moderate Modifying Factors: Improves With: nothing Associated Symptoms: nausea Prior Chest Pain/Cardiac Workup: cardiac cath Nitro Today/Relief: no nitro taken today Aspirin Treatment Today: 81 mg x 1 Allergies/Adverse Reactions: hydromorphone [From Dilaudid] Allergy (Severe, Verified 07/10/19 17:27) Rapid Heart Beat "become a mean person" latex Allergy (Mild, Verified 07/10/19 17:27) Swelling penicillin G Allergy (Mild, Verified 07/10/19 17:27) Swelling acetaminophen [From Percocet] Adverse Reaction (Severe, Verified 07/10/19 17:27) Difficulty Breathing "bad bad trips" oxycodone [From Percocet] Adverse Reaction (Severe, Verified 07/10/19 17:27) Difficulty Breathing "bad bad trips" Home Medications: Aspirin 81 mg PO HS 07/08/14 [History] Clopidogrel Bisulfate 75 mg [PLAVIX 75 MG Tablet] 75 mg PO QAM 07/08/14 [ History] Lisinopril 5 mg [Zestril 5 MG] 20 mg PO HS 07/08/14 [History] Loratadine 10 mg [Claritin 10 mg] 10 mg PO DAILY PRN PRN 07/08/14 [History ] Meclizine HCl 25 mg [Antivert 25 mg] 25 mg PO TID 07/08/14 [History] Metoprolol Tartrate 25 mg [Lopressor 25MG Tab] 25 mg PO BID 07/08/14 [ History] Nitroglycerin 0.4 mg Tablet [Nitrostat 0.4 MG Tablet] 0.4 mg SL Q5MIN PRN MR X 3 PRN 07/08/14 [History] Magnesium Oxide 400 mg [Mag-Ox 400] 400 mg PO DAILY 12/25/16 [History] Atorvastatin Calcium 80 mg PO DAILY 06/07/19 [History] Gabapentin 300 mg PO BID 06/07/19 [History] PANTOPRAZOLE 40 mg Tablet [Protonix 40MG Tablet] 40 mg PO QAM 06/07/19 [ History] Solifenacin Succinate [Vesicare] 5 mg PO HS 06/07/19 [History] Hx Tetanus, Diphtheria Vaccination/Date Given: Yes Hx Influenza Vaccination/Date Given: No Hx Pneumococcal Vaccination/Date Given: No Immunizations Up to Date: Yes - Review of Systems Constitutional: No Fever, No Chills Eyes: No Symptoms Ears, Nose, & Throat: No Symptoms Respiratory: No Cough, No Dyspnea Cardiac: Chest Pain, No Edema, No Syncope Abdominal/Gastrointestinal: No Abdominal Pain, No Nausea, No Vomiting, No Diarrhea Genitourinary Symptoms: No Dysuria Musculoskeletal: No Back Pain, No Neck Pain Skin: No Rash Neurological: No Dizziness, No Focal Weakness, No Sensory Changes Psychological: No Symptoms Endocrine: No Symptoms All Other Systems: Reviewed and Negative - Past Medical History Pertinent Past Medical History: Yes Neurological History: Peripheral Neuropathy ENT History: No Pertinent History Cardiac History: Myocardial Infarction ([place]) Respiratory History: Sleep Apnea Endocrine Medical History: No Pertinent History Musculoskeletal History: No Pertinent History GI Medical History: Diverticulitis, Diverticulosis History: No Pertinent History Psycho-Social History: No Pertinent History Female Reproductive Disorders: No Pertinent History Other Medical History: Pt reports that she has tingling in her entire R side following PR in 2016. Pt notes that tingling begins in her toes and goes all the way up through her R arm. - Past Surgical History Past Surgical History: Yes Neuro Surgical History: No Pertinent History Cardiac: Cardiac Stent Respiratory: No Pertinent History Gastrointestinal: Cholecystectomy, Colon Resection, Other Genitourinary: No Pertinent History Musculoskeletal: Orthopedic Surgery Female Surgical History: Hysterectomy Other Surgical History: ostomy with reversal and 2nd ostomy. [facility] back surgery- discectomy, mesh - Social History Smoking Status: Current every day smoker How long have you smoked: years Exposure to second hand smoke: Yes Drug Use: none Patient Lives Alone: Yes - Female History Hx Last Menstrual Period: hysterectomy - Nursing Vital Signs Nursing Vital Signs: Initial Vital Signs Temperature 97.8 F 07/10/19 17:27 Pulse Rate 72 07/10/19 17:27 Respiratory Rate 18 07/10/19 17:27 Blood Pressure 137/55 07/10/19 17:27 O2 Sat by Pulse Oximetry 99 07/10/19 17:27 Pain Scale Pain Intensity 3 - Physical Exam General Appearance: mild distress, alert Eye Exam: PERRL/EOMI, eyes nml inspection Ears, Nose, Throat Exam: normal ENT inspection, moist mucous membranes Neck Exam: normal inspection, non-tender, supple, full range of motion Respiratory Exam: normal breath sounds, lungs clear, No respiratory distress Cardiovascular Exam: regular rate/rhythm, normal heart sounds Gastrointestinal/Abdomen Exam: soft, No tenderness, No mass Back Exam: normal inspection, No CVA tenderness, No vertebral tenderness Extremity Exam: normal inspection, normal range of motion Neurologic Exam: alert, oriented x 3, cooperative, normal mood/affect, sensation nml, No motor deficits Skin Exam: normal color, warm, dry SpO2: 98 - Course Nursing assessment & vital signs reviewed: Yes EKG Interpreted by Me: RATE (72), Sinus Rhythm, NORMAL AXIS, NORMAL INTERVALS ( [place] interval was prolonged), Non-specific ST Changes, Other (Or R wave progression) - Radiology Exams Chest X-ray Interpretation: Interpreted by me (Film was rotated but there appears to be a questionable infiltrate in the right middle lobe area) Ordered Tests: Active Orders 24 hr Category Date Time Status EKG-ER Only STAT Care 07/10/19 17:42 Active CHEST 1 VIEW (PORTABLE) Stat Exams 07/10/19 17:42 Taken CBC W DIFF Stat Lab 07/10/19 17:37 Completed CMP Stat Lab 07/10/19 17:37 Completed D-DIMER QUANTITATIVE Stat Lab 07/10/19 17:37 Completed NT PRO BNP Stat Lab 07/10/19 17:37 Completed PROTIME WITH INR Stat Lab 07/10/19 17:37 Completed TROPONIN Q3H Lab 07/10/19 17:37 Completed TROPONIN Q3H Lab 07/10/19 20:45 Ordered TROPONIN Q3H Lab 07/10/19 23:45 Ordered TROPONIN Q3H Lab 07/11/19 02:45 Ordered TROPONIN Q3H Lab 07/11/19 05:45 Ordered Medication Summary Generic Name Dose Route Start Last Admin Trade Name Freq PRN Reason Stop Dose Admin Sodium Chloride 1,000 mls @ 50 mls/hr 07/10/19 17:45 07/10/19 17:53 Sodium Chloride 0.9% 1000 Ml IV 08/09/19 17:44 50 mls/hr .Q20H ARELIS Administration Discontinued Medications Generic Name Dose Route Start Last Admin Trade Name Freq PRN Reason Stop Dose Admin Aspirin 324 mg 07/10/19 17:42 07/10/19 17:52 Baby Aspirin 81 Mg Chew PO 07/10/19 17:43 324 mg STAT ONE Administration Aspirin Confirm 07/10/19 17:50 Baby Aspirin 81 Mg Chew Administered 07/10/19 17:51 Dose 324 mg .ROUTE .STK-MED ONE Lab/Rad Data: Laboratory Result Diagrams 07/10/19 17:37 07/10/19 17:37 Laboratory Results 07/10/19 07/10/19 07/10/19 Range/Units 17:37 17:37 17:37 WBC (4.0-10.5) K/mm3 RBC (4.1-5.4) M/mm3 Hgb (12.0-16.0) gm/dl Hct (35-47) % MCV (78-100) fl MCH (26-32) pg MCHC (32-36) g/dl Plt Count (150-450) K/mm3 Gran % (36.0-66.0) % Eos # (Auto) (0-0.5) Absolute Lymphs (auto) (1.0-4.6) Absolute Monos (auto) (0.0-1.3) Lymphocytes % (24.0-44.0) % Monocytes % (0.0-12.0) % Eosinophils % (0.00-5.0) % Basophils % (0.0-0.4) % Absolute Granulocytes (1.4-6.9) Basophils # (0-0.4) PT 12.0 (9.95-12.35) SECONDS INR 1.06 (0.8-3.0) D-Dimer 386 (215-500) ng/mL Sodium 140 (137-145) mmol/L Potassium 3.7 (3.5-5.1) mmol/L Chloride 107 (98-107) mmol/L Carbon Dioxide 27 (22-30) mmol/L Anion Gap 10.3 (5-15) MEQ/L BUN 13 (7-17) mg/dL Creatinine 0.70 (0.52-1.04) mg/dL Estimated GFR > 60.0 ML/MIN Glucose 104 (74-106) mg/dL Calcium 9.6 (8.4-10.2) mg/dL Total Bilirubin 0.40 (0.2-1.3) mg/dL AST 22 (14-36) U/L ALT 15 (0-35) U/L Alkaline Phosphatase 70 (38-126) U/L Troponin I < 0.012 (0.000-0.034) ng/mL NT-Pro-B Natriuret Pep 339 (0-900) pg/mL Serum Total Protein 7.5 (6.3-8.2) g/dL Albumin 4.1 (3.5-5.0) g/dL 07/10/19 Range/Units 17:37 WBC 9.1 (4.0-10.5) K/mm3 RBC 4.81 (4.1-5.4) M/mm3 Hgb 11.8 L (12.0-16.0) gm/dl Hct 38.1 (35-47) % MCV 79.2 (78-100) fl MCH 24.5 L (26-32) pg MCHC 31.0 L (32-36) g/dl Plt Count 242 (150-450) K/mm3 Gran % 62.8 (36.0-66.0) % Eos # (Auto) 0.23 (0-0.5) Absolute Lymphs (auto) 2.46 (1.0-4.6) Absolute Monos (auto) 0.61 (0.0-1.3) Lymphocytes % 27.2 (24.0-44.0) % Monocytes % 6.7 (0.0-12.0) % Eosinophils % 2.5 (0.00-5.0) % Basophils % 0.8 (0.0-0.4) % Absolute Granulocytes 5.68 (1.4-6.9) Basophils # 0.07 (0-0.4) PT (9.95-12.35) SECONDS INR (0.8-3.0) D-Dimer (215-500) ng/mL Sodium (137-145) mmol/L Potassium (3.5-5.1) mmol/L Chloride (98-107) mmol/L Carbon Dioxide (22-30) mmol/L Anion Gap (5-15) MEQ/L BUN (7-17) mg/dL Creatinine (0.52-1.04) mg/dL Estimated GFR ML/MIN Glucose (74-106) mg/dL Calcium (8.4-10.2) mg/dL Total Bilirubin (0.2-1.3) mg/dL AST (14-36) U/L ALT (0-35) U/L Alkaline Phosphatase (38-126) U/L Troponin I (0.000-0.034) ng/mL NT-Pro-B Natriuret Pep (0-900) pg/mL Serum Total Protein (6.3-8.2) g/dL Albumin (3.5-5.0) g/dL - Progress Progress: improved Air Movement: good Blood Culture(s) Obtained: No Antibiotics given: Yes - Departure Departure Disposition: Home Clinical Impression: Right middle lobe pulmonary infiltrate Condition: Stable Critical Care Time: No Referrals: BEBA TAVERA MD [Primary Care Provider] - Instructions: Chest Pain (DC) Prescriptions: Cephalexin Mh 500 mg [Keflex 500 mg] 500 mg PO TID #21 capsule
[2019-07-10 19:54] VITALS: BP 147/75; PULSE 74; O2SAT 97
[2019-07-10 23:39] LABS: Slide Review 1 YES
--- NOTE | 2019-07-11 08:59 | XRAY ---
Indication: Chest pain, lightheaded, and hypertension. Comparison: December 26, 2016. Portable chest remains clear. Heart is not enlarged for AP portable technique. Bony thorax intact again with mild degenerative changes. Impression: Nonacute chest.
== END 2019-07-10 19:55 | disposition home or self-care (01) ==
LOC: ED 17:26
DX: R91.8 Other nonspecific abnormal finding of lung field (principal)
CPT/HCPCS: 36415; 71045; 80053; 83880; 84484; 85025; 85379; 85610; 93005; 99284; A9270-GY

== ENCOUNTER 2023-06-25 09:02 | Emergency (ER) | payer MEDICARE ==
[2023-06-25 09:18] VITALS: TEMP 97.2
--- NOTE | 2023-06-25 10:33 | ERPHSYRPT ---
- History of Present Illness Time Seen by Provider: 06/25/23 10:14 Source: patient Exam Limitations: no limitations Patient Subjective Stated Complaint: pt here for swelling and pain to right side of jaw just below the right ear today after eating hale, shes states it aslo happened before. she states that side of face is numb but has history of numbness to right side of body, she was seen at [facility], yesterday, denies fever, Triage Nursing Assessment: pt alert, walked in, resp easy, has swelling and tenderness to right jaw area under right ear, moves all ext well, Physician History: Pt states yesterday she had a near syncopal episode with a headache which lasted for 15 minutes, went to [facility] ER and was released. Today at 6:30 AM pt ate hale and started with swelling of the right jaw and right side of the neck below the right ear with numbness of the face and hands. Pt denies chest pain, shortness of air, fever, abdominal pain, nausea, vomiting, weakness. Allergies/Adverse Reactions: hydromorphone [From Dilaudid] Allergy (Severe, Verified 06/25/23 09:39) Rapid Heart Beat "become a mean person" latex Allergy (Mild, Verified 06/25/23 09:39) Swelling penicillin G Allergy (Mild, Verified 06/25/23 09:39) Swelling acetaminophen [From Percocet] Adverse Reaction (Severe, Verified 06/25/23 09:39) Difficulty Breathing "bad bad trips" oxycodone [From Percocet] Adverse Reaction (Severe, Verified 06/25/23 09:39) Difficulty Breathing "bad bad trips" Home Medications: Aspirin 81 mg PO HS 07/08/14 [History] Clopidogrel Bisulfate [PLAVIX 75 MG Tablet] 75 mg PO QAM 07/08/14 [History] Lisinopril 5 mg [Zestril 5 MG] 20 mg PO HS 07/08/14 [History] Loratadine 10 mg [Claritin 10 mg] 10 mg PO DAILY PRN PRN 07/08/14 [History] Meclizine HCl 25 mg [Antivert 25 mg] 25 mg PO TID 07/08/14 [History] Metoprolol Tartrate 25 mg [Lopressor 25MG Tab] 25 mg PO BID 07/08/14 [History] Nitroglycerin 0.4 mg Tablet [Nitrostat 0.4 MG Tablet] 0.4 mg SL Q5MIN PRN MR X 3 PRN 07/08/14 [History] Magnesium Oxide 400 mg [Mag-Ox 400] 400 mg PO DAILY 12/25/16 [History] Atorvastatin Calcium 80 mg PO DAILY 06/07/19 [History] Gabapentin 300 mg PO BID 06/07/19 [History] PANTOPRAZOLE 40 mg Tablet [Protonix 40MG Tablet] 40 mg PO QAM 06/07/19 [History] Solifenacin Succinate [Vesicare] 5 mg PO HS 06/07/19 [History] Hx Tetanus, Diphtheria Vaccination/Date Given: Yes Hx Influenza Vaccination/Date Given: No Hx Pneumococcal Vaccination/Date Given: No Immunizations Up to Date: Yes Travel Risk - International Travel Have you traveled outside of the country in past 3 weeks: No - Coronavirus Screening Are you exhibiting any of the following symptoms?: No Close contact with a COVID-19 positive Pt in past 14-21 Days: No - Vaccine Status Have you recieved a Covid-19 vaccination: Yes 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: [employer] - Vaccination Dates Date of 2cond Vaccination (if applicable): 2020 - Review of Systems Constitutional: No Fever Respiratory: No Dyspnea Cardiac: No Chest Pain Abdominal/Gastrointestinal: No Abdominal Pain, No Nausea, No Vomiting, No Diarrhea Skin: No Rash Neurological: Headache, Sensory Changes (facial and bilateral hand numbness) - Past Medical History Pertinent Past Medical History: Yes Neurological History: Peripheral Neuropathy ENT History: No Pertinent History Cardiac History: Myocardial Infarction ([place]) Respiratory History: Sleep Apnea Endocrine Medical History: No Pertinent History Musculoskeletal History: No Pertinent History GI Medical History: Diverticulitis, Diverticulosis History: No Pertinent History Psycho-Social History: No Pertinent History Female Reproductive Disorders: No Pertinent History Other Medical History: Pt reports that she has tingling in her entire R side following [place] in 2016. Pt notes that tingling begins in her toes and goes all the way up through her R arm. - Past Surgical History Past Surgical History: Yes Neuro Surgical History: Other Cardiac: Cardiac Stent Respiratory: No Pertinent History Gastrointestinal: Cholecystectomy, Colon Resection, Other Genitourinary: No Pertinent History Musculoskeletal: Orthopedic Surgery Female Surgical History: Hysterectomy Other Surgical History: ostomy with reversal and 2nd ostomy. [facility] 12[facility] back surgery- discectomy, mesh - Social History Smoking Status: Current every day smoker How long have you smoked: years Exposure to second hand smoke: Yes Drug Use: none Patient Lives Alone: Yes - Nursing Vital Signs Nursing Vital Signs: Initial Vital Signs Temperature 97.2 F 06/25/23 09:17 Pulse Rate 72 06/25/23 09:17 Respiratory Rate 14 06/25/23 09:17 Blood Pressure 150/67 06/25/23 09:17 O2 Sat by Pulse Oximetry 100 06/25/23 09:17 Pain Scale Pain Intensity 0 - Dionisio Coma Scale Best Eye Response ([place]): (4) open spontaneously Best Verbal Response ([place]): (5) oriented Best Motor Response ([place]): (6) obeys commands [place] Total: 15 - Physical Exam General Appearance: alert Eye Exam: right eye: other (ptosis(ongoing)), bilateral eye: PERRL, EOMI Ears, Nose, Throat Exam: TMs normal, pharynx normal Neck Exam: other (mild tenderness on right side of neck below right ear) Respiratory: normal breath sounds Cardiovascular: normal heart sounds Gastrointestinal: soft, normal bowel sounds Back Exam: normal inspection Extremity Exam: No pedal edema 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 Straightening of spine noted likely due to muscular spasms. See rest of report.) Head CT Interpretation: Tele-radiologist Report (Extra axial CSF spaces are prominent in the bilateral frontoparietal lobe with normal vessels inside causing compression over the lobes with subdural hygroma being a possible differential and requires clinical correlation.) Ordered Tests: Active Orders 24 hr Category Date Time Status EKG-ER Only STAT Care 06/25/23 10:36 Active IV Insertion STAT Care 06/25/23 10:36 Active CHEST 2 VIEWS (PA AND LAT) Stat Exams 06/25/23 10:37 Completed HEAD WITHOUT CONTRAST [CT] Stat Exams 06/25/23 10:36 Completed NECK WO CONTRAST [CT] Stat Exams 06/25/23 10:36 Completed CBC W DIFF Stat Lab 06/25/23 10:05 Completed CMP Stat Lab 06/25/23 10:36 Completed CULTURE,URINE Stat Lab 06/25/23 10:39 Received MAGNESIUM Stat Lab 06/25/23 10:36 Completed TROPONIN Q4H Lab 06/25/23 10:45 Completed TROPONIN Q4H Lab 06/25/23 14:30 Completed TROPONIN Q4H Lab 06/25/23 18:45 Ordered UA W/RFX UR CULTURE Stat Lab 06/25/23 10:39 Completed Urine Triage Profile Stat Lab 06/25/23 10:39 Ordered Medication Summary Generic Name Dose Route Start Last Admin Trade Name Freq PRN Reason Stop Dose Admin Sodium Chloride 1,000 mls @ 100 mls/hr 06/25/23 10:45 06/25/23 10:44 Sodium Chloride 0.9% 1000 Ml IV 07/25/23 10:44 100 mls/hr .Q10H ARELIS Administration Lab/Rad Data: Laboratory Result Diagrams 06/25/23 10:05 06/25/23 10:36 Laboratory Results 06/25/23 06/25/23 06/25/23 Range/Units 14:30 10:45 10:39 WBC (4.0-10.5) x10^3/uL RBC (4.1-5.4) x10^6/uL Hgb (12.0-16.0) g/dL Hct (35-47) % MCV (78-100) fL MCH (26-32) pg MCHC (32-36) g/dL RDW (11.5-14.0) % Plt Count (150-450) x10^3/uL MPV (7.5-11.0) fL Gran % (36.0-66.0) % Immature Gran % (Auto) (0.00-0.4) % Nucleat RBC Rel Count (0.00-0.1) % Eos # (Auto) (0-0.5) x10^3/uL Immature Gran # (Auto) (0.00-0.03) x10^3u/L Absolute Lymphs (auto) (1.0-4.6) x10^3/uL Absolute Monos (auto) (0.0-1.3) x10^3/uL Absolute Nucleated RBC (0.00-0.01) x10^3u/L Lymphocytes % (24.0-44.0) % Monocytes % (0.0-12.0) % Eosinophils % (0.00-5.0) % Basophils % (0.0-0.4) % Absolute Granulocytes (1.4-6.9) x10^3/uL Basophils # (0-0.4) x10^3/uL Sodium (137-145) mmol/L Potassium (3.5-5.1) mmol/L Chloride (98-107) mmol/L Carbon Dioxide (22-30) mmol/L Anion Gap (5-15) MEQ/L BUN (7-17) mg/dL Creatinine (0.52-1.04) mg/dL Estimated GFR ML/MIN Glucose (74-106) mg/dL Calcium (8.4-10.2) mg/dL Magnesium (1.6-2.3) mg/dL Total Bilirubin (0.2-1.3) mg/dL AST (14-36) U/L ALT (0-35) U/L Alkaline Phosphatase (38-126) U/L Troponin I < 0.012 < 0.012 (0.000-0.034) ng/mL Serum Total Protein (6.3-8.2) g/dL Albumin (3.5-5.0) g/dL Urine Color Yellow (Yellow) Urine Appearance Clear (Clear) Urine pH 6.5 (4.6-8.0) Ur Specific [place] <=1.005 (1.005-1.030) Urine Protein 100 A (Negative) Urine Glucose (UA) Negative (Negative) mg/dL Urine Ketones Negative (Negative) Urine Blood Trace (Negative) Urine Nitrite Negative (Negative) Urine Bilirubin Negative (Negative) Urine Urobilinogen 0.2 (0.2) mg/dL Ur Leukocyte Esterase Small A (Negative) U Hyaline Cast (Auto) NONE SEEN (0-2) /LPF Urine Microscopic RBC 0-2 (0-5) /HPF Urine Microscopic WBC 11-20 A (0-5) /HPF Ur Epithelial Cells None Seen (None Seen) /HPF Urine Bacteria None Seen (None Seen) /HPF Urine Culture Reflexed YES (NO) 06/25/23 06/25/23 Range/Units 10:36 10:05 WBC 11.0 H (4.0-10.5) x10^3/uL RBC 4.95 (4.1-5.4) x10^6/uL Hgb 15.3 (12.0-16.0) g/dL Hct 46.9 (35-47) % MCV 94.7 (78-100) fL MCH 30.9 (26-32) pg MCHC 32.6 (32-36) g/dL RDW 12.8 (11.5-14.0) % Plt Count 262 (150-450) x10^3/uL MPV 11.9 H (7.5-11.0) fL Gran % 69.2 H (36.0-66.0) % Immature Gran % (Auto) 0.4 (0.00-0.4) % Nucleat RBC Rel Count 0.0 (0.00-0.1) % Eos # (Auto) 0.31 (0-0.5) x10^3/uL Immature Gran # (Auto) 0.04 H (0.00-0.03) x10^3u/L Absolute Lymphs (auto) 2.40 (1.0-4.6) x10^3/uL Absolute Monos (auto) 0.52 (0.0-1.3) x10^3/uL Absolute Nucleated RBC 0.00 (0.00-0.01) x10^3u/L Lymphocytes % 21.8 L (24.0-44.0) % Monocytes % 4.7 (0.0-12.0) % Eosinophils % 2.8 (0.00-5.0) % Basophils % 1.1 (0.0-0.4) % Absolute Granulocytes 7.60 H (1.4-6.9) x10^3/uL Basophils # 0.12 (0-0.4) x10^3/uL Sodium 140 (137-145) mmol/L Potassium 3.8 (3.5-5.1) mmol/L Chloride 106 (98-107) mmol/L Carbon Dioxide 25 (22-30) mmol/L Anion Gap 11.9 (5-15) MEQ/L BUN 15 (7-17) mg/dL Creatinine 0.84 (0.52-1.04) mg/dL Estimated GFR 80.0 ML/MIN Glucose 105 (74-106) mg/dL Calcium 9.6 (8.4-10.2) mg/dL Magnesium 2.1 (1.6-2.3) mg/dL Total Bilirubin 0.50 (0.2-1.3) mg/dL AST 25 (14-36) U/L ALT 16 (0-35) U/L Alkaline Phosphatase 80 (38-126) U/L Troponin I (0.000-0.034) ng/mL Serum Total Protein 7.3 (6.3-8.2) g/dL Albumin 4.5 (3.5-5.0) g/dL Urine Color (Yellow) Urine Appearance (Clear) Urine pH (4.6-8.0) Ur Specific [place] (1.005-1.030) Urine Protein (Negative) Urine Glucose (UA) (Negative) mg/dL Urine Ketones (Negative) Urine Blood (Negative) Urine Nitrite (Negative) Urine Bilirubin (Negative) Urine Urobilinogen (0.2) mg/dL Ur Leukocyte Esterase (Negative) U Hyaline Cast (Auto) (0-2) /LPF Urine Microscopic RBC (0-5) /HPF Urine Microscopic WBC (0-5) /HPF Ur Epithelial Cells (None Seen) /HPF Urine Bacteria (None Seen) /HPF Urine Culture Reflexed (NO) - Progress Progress: unchanged Discussed with : Other (Spoke with & discussed case with Dr. Herrera(Neurosurgeon)([id number]) who accepted pt for transfer to [facility] ER.) Counseled pt/family regarding: lab results, diagnosis, rad results Medical Desision Making - Diagnostic Testing Diagnostic test were ordered, analyzed, and reviewed by me: Yes Radiological Interpretation: Teleradiologist Report - Departure Departure Disposition: Transfer ([facility] ER) Clinical Impression: Thyroid gland nodules, Subdural hygroma, Numbness, Neck pain, Near syncopal episode Condition: Stable Critical Care Time: Yes Critical Care Time(excluding separately billable procedures): Critical 30-74 mins Referrals: BEBA TAVERA MD [Primary Care Provider] - Follow up/PCP as directed
[2023-06-25] MEDS ORDERED: Sodium Chloride 0.9% 1000 ML 1,000 ML ONE (10:41)
[2023-06-25] MEDS: Sodium Chloride 0.9% 1000 ML 1,000 ML IV SCH (10:44)
[2023-06-25 10:47] LABS: BASOPHIL % 1.1 % (0.0-0.4); Basophil (Absolute #) 0.12 x10^3/uL (0-0.4); Eosinophil % 2.8 % (0.00-5.0); Eosinophil (Absolute #) 0.31 x10^3/uL (0-0.5); Hematocrit 46.9 % (35-47); Hemoglobin 15.3 g/dL (12.0-16.0); IMMATURE GRAN # 0.04 x10^3u/L (0.00-0.03); IMMATURE GRAN % 0.4 % (0.00-0.4); Lymphocytes % 21.8 % (24.0-44.0); Mean Cell Volume 94.7 fL (78-100); Mean Corpuscular Hemoglobin 30.9 pg (26-32); Mean Corpuscular Hgb Concent. 32.6 g/dL (32-36); Mean Platelet Volume 11.9 fL (7.5-11.0); Monocyte (Absolute #) 0.52 x10^3/uL (0.0-1.3); Monocytes % 4.7 % (0.0-12.0); Neutrophil % 69.2 % (36.0-66.0); Platelet Count 262 x10^3/uL (150-450); Red Blood Count 4.95 x10^6/uL (4.1-5.4); Red Cell Distribution Width 12.8 % (11.5-14.0)
[2023-06-25 10:56] LABS: ALBUMIN 4.5 g/dL (3.5-5.0); ANION GAP 11.9 MEQ/L (5-15); BILIRUBIN,TOTAL 0.5 mg/dL (0.2-1.3); Calcium 9.6 mg/dL (8.4-10.2); Creatinine 1 0.84 mg/dL (0.52-1.04); MAGNESIUM 2.1 mg/dL (1.6-2.3); Potassium 3.8 mmol/L (3.5-5.1); Total Protein 7.3 g/dL (6.3-8.2)
--- NOTE | 2023-06-25 11:24 | XRAY ---
CLINICAL HISTORY: near syncope TECHNIQUE: X-ray chest frontal and lateral views. COMPARISON: None. FINDINGS: Mild prominence of broncho vascular markings seen bilaterally. No consolidation seen in both lung deal. Normal sydnee and mediastinum. Normal appearing cardiac silhouette. Both costophrenic angles are clear. Unfolding of aorta seen. Visualized bones show mild degenerative changes. The partially reduced height of a mid-thoracic vertebra seen would recommend dedicated views if clinically indicated. Evidence of cervical fusion seen. IMPRESSION: No active pulmonary pathology seen. Electronically Signed by: Vy Huitron MD. (06/25/2023 11:19:47 EST)
--- NOTE | 2023-06-25 11:54 | XRAY ---
CLINICAL HISTORY: numbness TECHNIQUE: An axial CT scan of the neck was performed without the administration of intravenous contrast. Sagittal and coronal reconstructions were obtained. COMPARISON: None. FINDINGS: No sizable cervical lymph nodes at any of the noted lymph node stations. Normal CT appearance of the supra-and infra-hyoid deep neck spaces. Normal CT appearance of the larynx, namely the supraglottic, glottic, and infra, glottic spaces. Unremarkable. Nasal and Tr pharyngeal mucosal spaces. Normal CT appearance of the sublingual, submandibular, and parotid salivary glands. The base of the tongue, the uvula, the epiglottis, the vocal cords, the upper trachea, and the upper esophagus are unremarkable. The thyroid gland shows a few well-defined hypodense nodules measuring 1.8x2.0cm in the left lobe,1.4x1.2cm in the right lobe, and 1.2x1.4cm in the isthmus and needs proper assessment with TIRADS classification. The visualized structures of the posterior fossa show no definite abnormality. Straightening of spine noted likely due to muscular spasms with anterior plate and screw fixation of C4, C5, C6, and C7 vertebra. IMPRESSION: 1. Multiple nodules in the thyroid gland need proper assessment with Ultrasound TIRADS classification. 2. Straightening of spine noted likely due to muscular spasms with anterior plate and screw fixation of C4, C5, C6, and C7 vertebra without break or loosening. Electronically Signed by: Vy Huitron MD. (06/25/2023 11:49:59 EST)
[2023-06-25 12:03] LABS: Appearance Clear (Clear); Bacteria None Seen /HPF (None Seen); Bilirubin Negative (Negative); Blood Trace (Negative); Epithelial Cells None Seen /HPF (None Seen); Glucose, Urine Negative (Negative); Hyaline Casts NONE SEEN /LPF (0-2); Ketones Negative (Negative); Leukocyte Esterase Small (Negative); Nitrite Negative (Negative); Ph 6.5 (4.6-8.0); Protein,Urine Dip 100 (Negative); RBC 0-2 /HPF (0-5); Specific Gravity <=1.005 (1.005-1.030); Urobilinogen 0.2 mg/dL (0.2)
[2023-06-25 12:07] LABS: ADD URINE CULTURE? YES (NO)
--- NOTE | 2023-06-25 12:07 | XRAY ---
CLINICAL HISTORY: numbness TECHNIQUE: Axial non-contrast CT scan of the brain was performed from the skull base to the high parietal region. COMPARISON: None FINDINGS: Extra axial CSF spaces are prominent in the bilateral frontoparietal lobe with normal vessels inside causing mild compression on the underlying lobes. The visualized brain parenchyma shows a normal appearance. Bethea-white matter differentiation is maintained. No midline shifts or deformity. No intracerebral or extra axial hematoma. Normal size and configuration of the cerebral ventricles. Normal CT appearance of the posterior fossa structures namely the cerebellar hemispheres, brainstem, and cerebellar peduncles. The IACs are unremarkable. The cerebello-pontine angles are clear. The pituitary gland, the pineal gland, the optic chiasm is unremarkable. The osseous structures in the skull base are unremarkable. No definite calvarium fractures. Hyperostosis frontalis interna is noted. The scanned paranasal sinuses are clear. IMPRESSION: Extra axial CSF spaces are prominent in the bilateral frontoparietal lobe with normal vessels inside causing compression over the lobes, with subdural hygroma being a possible differential and requires clinical correlation. Electronically Signed by: Vy Huitron MD. (06/25/2023 12:01:53 EST)
[2023-06-25 14:54] VITALS: O2SAT 100
[2023-06-25 17:23] VITALS: BP 147/76; PULSE 77; RESP 18
[2023-06-25 18:14] LABS: Amphetamine,Urine NEGATIVE (NEGATIVE); Barbiturate,Urine NEGATIVE (NEGATIVE); Benzodiazepine,Urine NEGATIVE (NEGATIVE); Cocaine,Urine NEGATIVE (NEGATIVE); Methadone,Urine NEGATIVE (NEGATIVE); Opiate,Urine NEGATIVE (NEGATIVE); PCP,Urine NEGATIVE (NEGATIVE); THC,Urine NEGATIVE (NEGATIVE)
== END 2023-06-25 17:34 | disposition short-term general hospital (02) ==
LOC: ED 09:02
DX: E04.2 Nontoxic multinodular goiter (principal); G96.00 Cerebrospinal fluid leak, unspecified; R20.1 Hypoesthesia of skin; M54.2 Cervicalgia; R55 Syncope and collapse; Z79.02 Long term (current) use of antithrombotics/antiplatelets; Z79.899 Other long term (current) drug therapy; Z72.0 Tobacco use
CPT/HCPCS: 36000; 36415; 70450; 70490; 71046; 80053; 80307; 81001; 83735; 84484; 85025; 87086; 93005; 96360; 96361; 99285; 99291

== ENCOUNTER 2024-03-12 17:40 | Emergency (ER) | payer MEDICARE ==
[2024-03-12 17:52] VITALS: PULSE 76; RESP 18; TEMP 97.6
--- NOTE | 2024-03-12 17:58 | ERPHSYRPT ---
<DASIAKACI RileySteffanie - Last Filed: 03/12/24 20:06> - History of Present Illness Source: patient Exam Limitations: no limitations Patient Subjective Stated Complaint: PT HERE FOR SWELLING TO RIGHT SIDE OF FACE TODAY, SHE STATES THIS HAPPENS OCC, SHE IS UNSURE WHY, SHE DENIES ANY PAIN OR FEVER, Triage Nursing Assessment: PT ARRIVED PER EMS, RESP EASY, ALERT, SKIN W/D/P. NO RASH, HAS SWELLING TO RIGHT JAW AREA, NO REDNESS, MOVES ALL EXT WELL, NO JOSELYN OLING, IV TO RIGHT ARM Timing/Duration: intermittent Severity: mild ENT Location: facial (right side) Prearrival Treatment: over the counter meds Modifying Factors: Improves With: nothing, other (food worsens) Associated Symptoms: facial pain/swelling (right), swollen glands, difficulty swallowing, No fever, No chills, No change in hearing, No drooling, No ear drainage, No ringing of ears, No tooth pain Hx Tetanus, Diphtheria Vaccination/Date Given: Yes Hx Influenza Vaccination/Date Given: No Hx Pneumococcal Vaccination/Date Given: No Immunizations Up to Date: Yes <REBECA MARTINEZ - Last Filed: 03/16/24 22:02> - History of Present Illness Time Seen by Provider: 03/12/24 17:58 Physician History: The patient presents with recurrent jaw swelling and redness after eating. The patient experiences recurrent episodes of jaw swelling and redness, first no ticed after eating a piece of hale this morning. The swelling occurs on the outside of the jaw and is sometimes accompanied by a salty taste. It does not hurt to touch and typically resolves before she can seek medical attention. These episodes have occurred in the past, with the last one happening approximately eight to ten months ago. She has not identified a specific trigger, as it has happened with various foods, including cauliflower. She expresses frustration that the symptoms often resolve before she can be evaluated by a healthcare provider. She describes a 'horrible headache' and a tingling sensation that spreads across the gums during these episodes. No pain is reported upon touching the swollen area, and the swelling feels more external rather than inside the cheek. (REBECA MARTINEZ) Allergies/Adverse Reactions: hydromorphone [From Dilaudid] Allergy (Severe, Verified 03/12/24 17:42) Rapid Heart Beat "become a mean person" latex Allergy (Mild, Verified 03/12/24 17:42) Swelling penicillin G Allergy (Mild, Verified 03/12/24 17:42) Swelling acetaminophen [From Percocet] Adverse Reaction (Severe, Verified 03/12/24 17:42) Difficulty Breathing "bad bad trips" oxycodone [From Percocet] Adverse Reaction (Severe, Verified 03/12/24 17:42) Difficulty Breathing "bad bad trips" Home Medications: Aspirin 81 mg PO HS 07/08/14 [History] Clopidogrel Bisulfate [PLAVIX 75 MG Tablet] 75 mg PO QAM 07/08/14 [History] Lisinopril 5 mg [Zestril 5 MG] 20 mg PO HS 07/08/14 [History] Loratadine 10 mg [Claritin 10 mg] 10 mg PO DAILY PRN PRN 07/08/14 [History] Meclizine HCl 25 mg [Antivert 25 mg] 25 mg PO TID 07/08/14 [History] Metoprolol Tartrate 25 mg [Lopressor 25MG Tab] 25 mg PO BID 07/08/14 [History] Nitroglycerin 0.4 mg Tablet [Nitrostat 0.4 MG Tablet] 0.4 mg SL Q5MIN PRN MR X 3 PRN 07/08/14 [History] Magnesium Oxide 400 mg [Mag-Ox 400] 400 mg PO DAILY 12/25/16 [History] Atorvastatin Calcium 80 mg PO DAILY 06/07/19 [History] Gabapentin 300 mg PO BID 06/07/19 [History] PANTOPRAZOLE 40 mg Tablet [Protonix 40MG Tablet] 40 mg PO QAM 06/07/19 [History] Solifenacin Succinate [Vesicare] 5 mg PO HS 06/07/19 [History] Travel Risk - International Travel Have you traveled outside of the country in past 3 weeks: No - Emerging Infectious Disease Are you exhibiting symptoms associated with any current EIDs: No <REBECA MARTINEZ - Last Filed: 03/16/24 22:02> - Review of Systems All Other Systems: Reviewed and Negative <REBECA MARTINEZ - Last Filed: 03/16/24 22:02> - Past Medical History Pertinent Past Medical History: Yes Neurological History: Peripheral Neuropathy ENT History: No Pertinent History Cardiac History: Myocardial Infarction (DE) Respiratory History: Sleep Apnea Endocrine Medical History: No Pertinent History Musculoskeletal History: No Pertinent History GI Medical History: Diverticulitis, Diverticulosis History: No Pertinent History Psycho-Social History: No Pertinent History Female Reproductive Disorders: No Pertinent History Other Medical History: Pt reports that she has tingling in her entire R side following DE in 2016. Pt notes that tingling begins in her toes and goes all the way up through her R arm. - Past Surgical History Past Surgical History: Yes Neuro Surgical History: Other Cardiac: Cardiac Catheterization, Cardiac Stent Respiratory: No Pertinent History Gastrointestinal: Cholecystectomy, Colon Resection, Other Genitourinary: No Pertinent History Musculoskeletal: Orthopedic Surgery Female Surgical History: Hysterectomy Other Surgical History: ostomy with reversal and 2nd ostomy. [facility] 12/[facility] back surgery- discectomy, mesh - Social History Smoking Status: Current every day smoker How long have you smoked: years Exposure to second hand smoke: Yes Drug Use: none Patient Lives Alone: Yes - Social Determinants of Health Do you worry about a steady place to live?: Yes Do you have any problems with any of the following?: No known problems In the past 12 months,have you had to go without utilities?: No Transportation Issues: No Has anyone in your support network made you feel unsafe?: No Have you or anyone in your house had to go without enough: No <REBECA MARTINEZ - Last Filed: 03/16/24 22:02> - Physical Exam General Appearance: no apparent distress Eye Exam: bilateral eye: normal inspection, PERRL, EOMI Ear Exam: bilateral ear: auricle normal, canal normal Nasal Exam: normal inspection Throat Exam: normal, pharynx normal, moist mucus membranes, No maxillary swelling, No pharynx swelling, No pharynx tenderness, No uvula swelling Neck Exam: normal inspection, non-tender, supple, full range of motion Cardiovascular/Respiratory Exam: normal breath sounds, regular rate/rhythm, heart sounds normal Neurologic Exam: alert, oriented x 3, cooperative Skin Exam: normal color, warm, dry, No rash SpO2 Interpretation: normal SpO2: 96 O2 Delivery: Room Air <KHALIDA MARTINEZEB GiacomoSteffanie - Last Filed: 03/16/24 22:02> - Nursing Vital Signs Nursing Vital Signs: Initial Vital Signs Blood Pressure 144/58 03/12/24 17:39 O2 Sat by Pulse Oximetry 96 03/12/24 17:39 Pain Scale Pain Intensity 0 - Course Nursing assessment & vital signs reviewed: Yes <KACI FORMAN - Last Filed: 03/12/24 20:06> Lab/Rad Data: Laboratory Result Diagrams 03/12/24 18:51 03/12/24 18:51 Laboratory Results 03/12/24 03/12/24 Range/Units 18:51 18:51 WBC 9.9 (3.98-10.04) x10^3/uL RBC 3.92 L (3.93-5.22) x10^6/uL Hgb 12.0 (11.2-15.7) g/dL Hct 36.4 (34.1-44.9) % MCV 92.9 (79.4-94.8) fL MCH 30.6 (25.6-32.2) pg MCHC 33.0 (32.2-35.5) g/dL RDW 12.3 (11.7-14.4) % Plt Count 206 (182-369) x10^3/uL MPV 11.2 (9.4-12.3) fL Gran % 60.2 (34.0-71.1) % Immature Gran % (Auto) 0.3 (0.001-0.429) % Nucleat RBC Rel Count 0.0 (0.00-0.2) % Eos # (Auto) 0.38 H (0.04-0.36) x10^3/uL Immature Gran # (Auto) 0.03 (0.001-0.031) x10^3u/L Absolute Lymphs (auto) 2.60 (1.18-3.74) x10^3/uL Absolute Monos (auto) 0.81 (0.24-0.86) x10^3/uL Absolute Nucleated RBC 0.00 (0.00-0.012) x10^3u/L Lymphocytes % 26.4 (19.3-51.7) % Monocytes % 8.2 (4.7-12.5) % Eosinophils % 3.9 (0.7-5.8) % Basophils % 1.0 (0.1-1.2) % Absolute Granulocytes 5.93 (1.56-6.13) x10^3/uL Basophils # 0.10 H (0.01-0.08) x10^3/uL Sodium 142 (135-145) mmol/L Potassium 3.9 (3.5-5.1) mmol/L Chloride 109 H (98-107) mmol/L Carbon Dioxide 26 (22-30) mmol/L Anion Gap 10.4 (5-15) MEQ/L BUN 18 H (7-17) mg/dL Creatinine 0.93 (0.52-1.04) mg/dL Estimated GFR 70.8 ML/MIN Glucose 102 (74-106) mg/dL Calcium 9.1 (8.4-10.2) mg/dL Total Bilirubin 0.20 (0.2-1.3) mg/dL AST 23 (14-36) U/L ALT 20 (0-35) U/L Alkaline Phosphatase 64 (38-126) U/L Serum Total Protein 6.2 L (6.3-8.2) g/dL Albumin 3.6 (3.5-5.0) g/dL - Progress Progress: improved <KACI FORMAN - Last Filed: 03/12/24 20:06> - Progress Counseled pt/family regarding: diagnosis, need for follow-up <REBECA MARTINEZ - Last Filed: 03/16/24 22:02> - Progress Progress Note: Patient appears to have recurrent inflammatory process around her parotid gland on the right. At this time it does not appear to be infectious. I think it might be obstructive. CTs were done. It showed parotitis possibly inflammatory or infectious but I think are clinically symptoms are inflammatory. She is stable for discharge home. Her symptoms have improved. That is then the natural course of her issue 03/12/24 20:07 (KACI FORMAN) Intermittent Parotid Gland Swelling Intermittent parotid gland swelling with associated redness, tingling, and occasional salty taste for 8-10 months. Differential diagnosis includes sialadenitis, sialolithiasis, or other parotid gland pathology. Swelling subsides spontaneously, no pain on palpation. CT scan and labs needed to evaluate structural abnormalities or stones. - Order CT scan of the face to evaluate the parotid gland - Check relevant labs. (REBECA MARTINEZ) Medical Desision Making - Independent Historian Additional History obtained from: Mother - Social Determinants of Health Pt's dx & treatment plan are significantly limited by SDOH: limited education - Diagnostic Testing Diagnostic test were ordered, analyzed, and reviewed by me: Yes Radiological Interpretation: Reviewed by me <KACI FORMAN - Last Filed: 03/12/24 20:06> - Departure Departure Disposition: Home Critical Care Time: No <KACI FORMAN - Last Filed: 03/12/24 20:06> <REBECA MARTINEZ - Last Filed: 03/16/24 22:02> - Departure Clinical Impression: Chronic parotitis Condition: Stable Referrals: BEBA TAVERA MD [Primary Care Provider] - Follow up/PCP as directed Instructions: Parotitis
[2024-03-12 18:12] VITALS: BP 162/76
[2024-03-12 18:54] LABS: Absolute Neutrophil Ct (ANC) 5.93 x10^3/uL (1.56-6.13); Eosinophil % 3.9 % (0.7-5.8); Eosinophil (Absolute #) 0.38 x10^3/uL (0.04-0.36); Hematocrit 36.4 % (34.1-44.9); IMMATURE GRAN # 0.03 x10^3u/L (0.001-0.031); IMMATURE GRAN % 0.3 % (0.001-0.429); Lymphocytes % 26.4 % (19.3-51.7); Mean Cell Volume 92.9 fL (79.4-94.8); Mean Corpuscular Hemoglobin 30.6 pg (25.6-32.2); Mean Platelet Volume 11.2 fL (9.4-12.3); Monocyte (Absolute #) 0.81 x10^3/uL (0.24-0.86); Monocytes % 8.2 % (4.7-12.5); Neutrophil % 60.2 % (34.0-71.1); Platelet Count 206 x10^3/uL (182-369); Red Blood Count 3.92 x10^6/uL (3.93-5.22); Red Cell Distribution Width 12.3 % (11.7-14.4); White Blood Count 9.9 x10^3/uL (3.98-10.04)
[2024-03-12 19:10] LABS: ALBUMIN 3.6 g/dL (3.5-5.0); ANION GAP 10.4 MEQ/L (5-15); BILIRUBIN,TOTAL 0.2 mg/dL (0.2-1.3); Calcium 9.1 mg/dL (8.4-10.2); Creatinine 1 0.93 mg/dL (0.52-1.04); EST GLOMERULAR FILTRATION RATE 70.8 ML/MIN; Potassium 3.9 mmol/L (3.5-5.1); Total Protein 6.2 g/dL (6.3-8.2)
--- NOTE | 2024-03-12 19:53 | XRAY ---
CLINICAL HISTORY: facial pain and swelling COMPARISON: None. TECHNIQUE: A non-contrast CT scan of the facial bones was performed, with sagittal and coronal multiplanar reconstruction. One of the following dose reduction techniques was utilized for this exam: Automated exposure control, adjustment of the mA and/or kV according to patient size, and use of iterative reconstruction. FINDINGS: Please refer to the accompanying neck contrast study. Sinuses: All paranasal sinuses are clear. No evidence of sinusitis, mucosal thickening, or fluid levels. Osteomeatal complexes are patent. Nasal Cavity: The nasal cavity is unremarkable. No masses, polyps, or deviations. Orbits: Orbits are normal in size and shape. Extraocular muscles and optic nerves are normal. No evidence of orbital masses or proptosis. Maxilla and Mandible: Normal appearance of the maxillary and mandibular bones. No fractures, lytic or sclerotic lesions. Normal dentition without significant periodontal disease. Facial Bones: No fractures or deformities. Zygomatic arches, nasal bones, and other facial structures are intact. Salivary Glands: Parotid, submandibular, and sublingual glands are normal. No evidence of sialadenitis or masses. Temporomandibular Joints (TMJ): Normal appearance of the TMJ bilaterally. No evidence of joint effusion, degenerative changes, or dislocation. Others: Prior C4-7 anterior fixation, with cervical spondylosis and atlantoaxial degenerative changes. IMPRESSION: 1. The facial bones appear intact. 2. Please refer to the accompanying neck contrast study. 3. Prior C4-7 anterior fixation, with cervical spondylosis and atlantoaxial degenerative changes. Electronically Signed by: Vy Huitron MD. (03/12/2024 19:48:06 EST)
--- NOTE | 2024-03-12 19:59 | XRAY ---
CLINICAL HISTORY: facial pain and swelling COMPARISON: 06/25/2023. TECHNIQUE: CT scan of the neck was performed with the administration of intravenous contrast 60 cc ISovue 370. Sagittal and coronal reconstructions were obtained. One of the following dose reduction techniques were utilized for this exam: Automated exposure control, adjustment of the mA and/or kV according to patient size, and use of iterative reconstruction. FINDINGS: Nasopharynx: Normal size and appearance. No masses or abnormal enhancement. Oropharynx: Normal size and appearance. No masses or abnormal enhancement. Larynx and Hypopharynx: Normal appearance of the laryngeal structures. Vocal cords are normal in appearance and movement. No masses or abnormal enhancement. Thyroid Gland: Multiple 2-2.5 cm heterogenous nodules, for further U/S charecterization. Salivary Glands: Prominent parotid glands, right more than left, with no focal masses or collections. Surrounding fat stranding is seen in the right. Small intraparotid nodes. Lymph Nodes: Multiple small reactive lymphadenopathy. Vascular Structures: Normal enhancement of the carotid arteries, jugular veins, and other major vessels post-contrast. No evidence of vascular malformations, aneurysms, or thrombosis. Soft Tissues: Normal appearance of the soft tissues of the neck. No abnormal masses, swelling, or fluid collections. Bones: C4-7 anterior fixation. Airway: The trachea and main bronchi are patent. No evidence of tracheal or bronchial stenosis or masses. IMPRESSION: 1. Enlarged right parotid gland with fat-stranding, (no significant interval change since 06/25/2023). This is inflammatory/infective in etiology - likely right parotitis, for clinical correlation. 2. Multiple 2-2.5 cm heterogenous nodules in thyroid gland (grossly stable), for further U/S charecterization. Electronically Signed by: Vy Huitron MD. (03/12/2024 19:54:14 EST)
[2024-03-16 22:02] VITALS: O2SAT 96
== END 2024-03-12 20:28 | disposition home or self-care (01) ==
LOC: ED 17:40
DX: K11.23 Chronic sialoadenitis (principal); R22.0 Localized swelling, mass and lump, head; R51.9 Headache, unspecified; Z79.02 Long term (current) use of antithrombotics/antiplatelets; Z79.899 Other long term (current) drug therapy; Z72.0 Tobacco use; Z55.9 Problems related to education and literacy, unspecified
CPT/HCPCS: 36415; 70486; 70491; 80053; 85025; 99283; 99285